=== PATIENT | female | born 1955 | race Caucasian/White ===

== ENCOUNTER 2022-05-29 15:28 | Emergency (ER) | payer OTHER, SELFPAY ==
[2022-05-29] VITALS (7 sets, daily range): BP systolic 102–118; BP diastolic 71–77; PULSE 66–100; RESP 18; TEMP 36.6; O2SAT 96–98; BMI 20.1
--- NOTE | 2022-05-29 16:17 | PC.NURSE ---
Patient arrives with complaints of lumps on her scalp with some loss of her hair. There are small chunks of missing pieces without hair growth. Patient states that they are a and [facility] since [facility] able [facility] be [facility] until October 2022 per patient.
--- NOTE | 2022-05-29 18:11 | ED.SKABFB ---
HPI - Skin/Abscess/Foreign Bdy <Gavi Johnson PA-C - Last Filed: 05/29/22 18:24> General Chief complaint: Skin/Abscess/Foreign Body Stated complaint: painful rash on head Time Seen by Provider: 05/29/22 16:19 History of Present Illness HPI narrative: 67-year-old female history of long-term smoker, psoriasis, presents with concern for a persistent intermittent rash on her scalp that has been present for about 2 years. Patient states she is been treated multiple times with antibiotics but it keeps coming back. She states it is not itchy but it is painful and she has had hair loss in the area of the rash. She does note a history of psoriasis that started when she was 15 states she is never seen a tool chaser for this. [facility] and is working on getting back into see them but has not seen them for some time. She denies any other complaints or concerns and states she is otherwise been in her usual state of health. Related Data Previous Rx's Medication Instructions Recorded betamethasone dipropionate 0.05 % 1 applic topical BID PRN rash 14 05/29/22 topical cream days #15 grams Allergies Allergy/AdvReac Type Severity Reaction Status Date / Time No Known Drug Allergies Allergy Verified 05/29/22 15:47 Review of Systems <Gavi Johnson PA-C - Last Filed: 05/29/22 18:24> Review of Systems Narrative: Unremarkable except as noted in the HPI Patient History <Gavi Johnson PA-C - Last Filed: 05/29/22 18:24> Social History Smoking Status: Current every day smoker Smoking Status: Current every day smoker alcohol intake frequency: 3 or more drinks per day Alcohol type: beer Substance Use Type: methamphetamine Exam <Gavi Johnson PA-C - Last Filed: 05/29/22 18:24> Narrative Exam Narrative: GENERAL: 67 year old patient appears stated age. Very slim patient, in mild distress. HEAD: Atraumatic. Normocephalic. On the crown of the scalp posteriorly there are patches that have varying degrees of hair loss or shortened hair, there are regions with some mild scabbing no notable erythema swelling or tenderness, but 1 area with scarring and 1 area approximately 2 cm in diameter with complete hair loss. EYES: Pupils equal round and reactive. Extraocular motions intact. No scleral icterus. No injection or drainage. ENT: Nose without bleeding, purulent drainage. Airway patent. NECK: Trachea midline. Non tender CARDIOVASCULAR: Regular rate and rhythm without murmurs, gallops, or rubs. RESPIRATORY: Clear to auscultation. Breath sounds equal bilaterally. No wheezes, rales, or rhonchi. EXTREMITIES: No edema or joint tenderness. NEURO: AOx3. SKIN: See HEAD No rash or erythema of visible areas Initial Vital Signs Initial Vital Signs: Vital Signs Temperature 97.9 F 05/29/22 15:41 Pulse Rate 100 H 05/29/22 15:41 Respiratory Rate 18 05/29/22 15:41 Blood Pressure 118/76 05/29/22 15:41 Pulse Oximetry 96 05/29/22 15:41 Oxygen Delivery Method Room Air 05/29/22 15:41 <Sascha Lopez DO - Last Filed: 05/29/22 18:27> Initial Vital Signs Initial Vital Signs: Vital Signs Temperature 97.9 F 05/29/22 15:41 Pulse Rate 100 H 05/29/22 15:41 Respiratory Rate 18 05/29/22 15:41 Blood Pressure 118/76 05/29/22 15:41 Pulse Oximetry 96 05/29/22 15:41 Oxygen Delivery Method Room Air 05/29/22 15:41 Course <Gavi Johnson PA-C - Last Filed: 05/29/22 18:24> Vital Signs Vital signs: Vital Signs - 8 hr 05/29/22 15:41 05/29/22 16:12 05/29/22 16:13 Temperature 97.9 F Pulse Rate 100 H 88 Respiratory Rate 18 Blood Pressure 118/76 113/77 Pulse Oximetry 96 97 Oxygen Delivery Method Room Air 05/29/22 16:13 05/29/22 16:30 05/29/22 16:30 Temperature Pulse Rate 94 H 84 Respiratory Rate Blood Pressure 113/74 Pulse Oximetry 97 97 Oxygen Delivery Method 05/29/22 17:00 05/29/22 17:00 05/29/22 17:30 Temperature Pulse Rate 68 Respiratory Rate Blood Pressure 102/72 112/71 Pulse Oximetry 97 Oxygen Delivery Method 05/29/22 17:30 05/29/22 18:00 03/22/23 18:00 Temperature Pulse Rate 66 74 Respiratory Rate Blood Pressure 117/74 Pulse Oximetry 98 98 Oxygen Delivery Method <Sascha Lopez DO - Last Filed: 05/29/22 18:27> Vital Signs Vital signs: Vital Signs - 8 hr 05/29/22 15:41 05/29/22 16:12 05/29/22 16:13 Temperature 97.9 F Pulse Rate 100 H 88 Respiratory Rate 18 Blood Pressure 118/76 113/77 Pulse Oximetry 96 97 Oxygen Delivery Method Room Air 05/29/22 16:13 05/29/22 16:30 05/29/22 16:30 Temperature Pulse Rate 94 H 84 Respiratory Rate Blood Pressure 113/74 Pulse Oximetry 97 97 Oxygen Delivery Method 05/29/22 17:00 05/29/22 17:00 05/29/22 17:30 Temperature Pulse Rate 68 Respiratory Rate Blood Pressure 102/72 112/71 Pulse Oximetry 97 Oxygen Delivery Method 05/29/22 17:30 05/29/22 18:00 05/29/22 18:00 Temperature Pulse Rate 66 74 Respiratory Rate Blood Pressure 117/74 Pulse Oximetry 98 98 Oxygen Delivery Method MDM - Skin/Abscess/Foreign Bdy <Gavi Johnson PA-C - Last Filed: 05/29/22 18:24> Differential Diagnosis Differential diagnosis: Likely eczema and other (Psoriasis, chronic intermittent cellulitis) Treatment and disposition Shared decision making:: Shared decision-making was used in determining the this partitions plan of care in the emergency department and plan for outpatient MDM Narrative Medical decision making narrative: 67-year-old female who is a long-term chronic smoker with history of psoriasis presents with concern for rash on the top of her scalp that has been present on and off for about 2 years for which she has been given antibiotics multiple times. Patient states that [facility] and was told she could not get into be seen until October. She states the rash is actually not bothersome to her right now but it does intermittently become red and painful. She is not currently treating it with anything and does not remember treating it with anything except antibiotics. Given that the patient has a history of psoriasis and the scalp is somewhat dry appearing, do think it is reasonable to try a topical steroid medication to see if this improves things. Also will encourage her to [facility]. Based on exam and history today I do not feel this is consistent with cellulitis and do not think that she needs oral antibiotics at this time. Return precautions provided, follow-up plan discussed, all questions answered. Discharge Plan Departure Patient Disposition: Home Clinical Impression: Psoriasis of scalp Activity Restrictions/Additional Instructions: Thank you for letting us be part of your care today in the emergency department. Your rash does not look infected currently, I do think because he has a history of psoriasis it is reasonable to try some topical steroid medication for this, I have prescribed for you. If you do feel it is worsening becoming more painful or more red do not hesitate to have it re-evaluated, I encourage you to follow-up with the [facility] as planned and ask if you can get a referral to Dermatology. Based on your exam today, There is no evidence of an emergent or life threatening illness at this time, but follow up with your doctor in 1-2 days is recommended nonetheless to continue to rule out serious underlying causes of your symptoms. Please call the office for an appointment. Please return to the Emergency Department for any worsening or persistent symptoms. Please take medications as directed. Prescriptions: New betamethasone dipropionate 0.05 % cream 1 applic topical BID PRN (Reason: rash) 14 Days Qty: 15 1RF Stand Alone Forms: Patient Portal/API <Sascha Lopez, DO - Last Filed: 05/29/22 18:27> [facility] ED [facility] Dr Lopez Co-Sign Statement: I was available for consultation during this patient's emergency department visit. This chart is signed by myself for administrative purposes only. I did not have direct contact with this patient during this visit. They were seen independently by the [facility].
== END 2022-05-29 18:30 | disposition home or self-care (01) ==
PROVIDERS: Emergency Provider Student in an Organized Health Care Education/Training Program
DX: L40.9 Psoriasis, unspecified (principal)
CPT/HCPCS: 99281

== ENCOUNTER 2022-11-05 16:18 | Emergency (ER) | payer OTHER, SELFPAY ==
[2022-11-05 16:27] VITALS: BP 121/65; PULSE 85; RESP 20; TEMP 36.6; O2SAT 97; BMI 17.9
--- NOTE | 2022-11-05 17:12 | ED_ITS ---
HPI - Skin/Abscess/Foreign Bdy General Chief complaint: Skin/Abscess/Foreign Body Stated complaint: infected bug bites Time Seen by Provider: 11/05/22 16:45 Source: patient Mode of arrival: Ambulatory Limitations: no limitations History of Present Illness HPI narrative: Patient is a 67-year-old female who stated that on Friday she was working out in the yard. Stated that night she started to have itching on the top of her left foot in the front of her left rodney. She stated that she has since developed some lesions in his areas that have now developed redness around the areas and happen draining. No fevers. Has not tried anything for the symptoms prior to arrival. Related Data Previous Rx's Medication Instructions Recorded betamethasone dipropionate 0.05 % 1 applic topical BID PRN rash 14 05/29/22 topical cream days #15 grams cephalexin 500 mg capsule 500 mg PO QID 7 days #28 caps 11/05/22 Allergies Allergy/AdvReac Type Severity Reaction Status Date / Time No Known Drug Allergies Allergy Verified 05/31/22 08:41 Review of Systems Constitutional Constitutional: Reports system reviewed and no additional complaints, except as documented Musculoskeletal Musculoskeletal: Reports system reviewed and no additional complaints, except as documented Integumentary/Breasts Skin/Breast: Reports system reviewed and no additional complaints, except as documented Neurologic Neurologic: Reports system reviewed and no additional complaints, except as documented Hematologic/Lymphatic On Anticoagulants: No Patient History Social History Smoking Status: Current every day smoker Smoking Status: Current every day smoker alcohol intake frequency: 3 or more drinks per day Alcohol type: beer Substance Use Type: marijuana and methamphetamine Exam Initial Vital Signs Initial Vital Signs: Vital Signs Temperature 97.9 F 11/05/22 16:27 Pulse Rate 85 11/05/22 16:27 Respiratory Rate 20 11/05/22 16:27 Blood Pressure 121/65 11/05/22 16:27 Pulse Oximetry 97 11/05/22 16:27 Oxygen Delivery Method Room Air 11/05/22 16:27 [facility] Head: normal to inspection and normocephalic Skin Other: Patient has this small 1 cm area of scab on the anterior portion of the left rodney with surrounding erythema. She also has a scab on the great toe and 2nd toe her left foot and on the 2nd toe of her right foot had on her right index finger. None of these have redness around them. Neuro General: patient alert, patient awake and moves all extremities Extrem General: No edema Course Vital Signs Vital signs: Vital Signs - 8 hr 11/05/22 16:27 Temperature 97.9 F Pulse Rate 85 Respiratory Rate 20 Blood Pressure 121/65 Pulse Oximetry 97 Oxygen Delivery Method Room Air MDM - Skin/Abscess/Foreign Bdy MDM Narrative Medical decision making narrative: Patient is afebrile. Not septic. Does have redness around the wound on her left anterior rodney. Because of this we will start her on antibiotics. She is tolerating oral intake. She was given return precautions and follow-up instructions. She expressed understanding and agreement. Discharge Plan Departure Patient Disposition: Home Clinical Impression: Cellulitis Instructions: DI for Cellulitis -- Adult Activity Restrictions/Additional Instructions: Recommend that you take the antibiotics as directed. You can shower like normal. Return to the emergency department for new or worsening symptoms. Prescriptions: New cephalexin 500 mg capsule 500 mg PO QID 7 Days Qty: 28 0RF No Action betamethasone dipropionate 0.05 % cream 1 applic topical BID PRN (Reason: rash) 14 Days Qty: 15 1RF Stand Alone Forms: Patient Portal/API
== END 2022-11-05 17:18 | disposition home or self-care (01) ==
PROVIDERS: Emergency Provider Emergency Medicine; Family Provider Family Medicine
DX: L03.116 Cellulitis of left lower limb (principal)
CPT/HCPCS: 99281; 99283